=== PATIENT | female | born 1970 | race Caucasian/White ===

== ENCOUNTER 2019-06-10 09:32 | Outpatient (CLI) | payer OTHER, SELFPAY ==
--- NOTE | 2019-06-10 09:59 | CT_ITS ---
WS: [id number] CT CHEST WITH INTRAVENOUS CONTRAST HISTORY: HILAR ADENOPATHY TECHNIQUE: Contiguous 5 mm axial imaging performed on the thorax. Coronal and sagittal reformats are submitted. All CT scans at [facility] use at least one of these dose optimization techniq ues: automated exposure control; mA and/or kV adjustment per patient size (includes targeted exams wh ere dose is matched to clinical indication); or iterative reconstruction. CONTRAST: Omnipaque 300; 95 mL IV. DLP: 857.08 mGycm COMPARISON: Chest radiograph 12/22/2017 Lungs and central airway: Poor inspiratory effort. There is crowding the lung markings and mild hazin ess and groundglass attenuation. These findings would likely improved with better inspiration. There are a few scattered granulomata. No mass or pulmonary nodule. Pleura: Normal. No pleural effusion. Heart and pericardium: Normal size heart. No pericardial effusion. Mediastinum and rolanda: There are several small mediastinal and hilar lymph nodes. Normal size and fatt y rolanda. No enlarged lymph nodes. Vessels: Normal size aortic and pulmonary artery. No coronary artery calcifications. Chest wall and lower neck: 6 mm RIGHT thyroid nodule. Smaller nodule in the inferior pole of the LEFT thyroid. Dense bilateral fibroglandular tissue within each breast. Nodular in appearance but symmetr ic bilaterally. Upper abdomen: Hepatic steatosis. Prior cholecystectomy. Normal adrenal glands. Osseous structures: Mild RIGHT convex curvature thoracic spine. CT/CT chest w con* [id number] IMPRESSION: 1. Study is limited by poor inspiration. Lung markings would probably improve with better inspiration. 2. No significant adenopathy. There are several small mediastinal and hilar ly mph nodes which are not enlarged and could be reactive. 3. Dense nodular fibroglandular breast tissue, may be normal for this patient' s age. If mammogram has not been performed consider screening mammogram evaluat ion. 4. Prior cholecystectomy.
[2019-06-10] MEDS: iohexol 300 mg/mL 100 mL Btl IV (10:30)
== END 2019-06-10 09:33 | disposition home or self-care (01) ==
LOC: RADWPI 09:41
PROVIDERS: Family Provider Family Medicine; PCP Family Medicine; Visit Provider Family Medicine
DX: R59.0 Localized enlarged lymph nodes (principal); Z90.49 Acquired absence of other specified parts of digestive tract
CPT/HCPCS: 71260; Q9967

== ENCOUNTER 2023-06-14 23:22 | Emergency (ER) | payer OTHER, SELFPAY ==
[2023-06-14 23:23] VITALS: BP 171/95; PULSE 68; RESP 18; TEMP 36.3; O2SAT 98; BMI 29.6
[2023-06-14 23:51] LABS: Basophils % 0.5 %; Eosinophils # 0.2 10^3/uL (0.0-0.8); Eosinophils % 2.4 %; Hematocrit 38.8 % (36-47); Lymphocytes # 1.6 10^3/uL (0.8-4.8); Lymphocytes % 24.2 %; Mean Corpuscular HGB Conc 34.3 g/dL (30-55); Mean Corpuscular Hemoglobin 31.4 pg (27-33); Mean Corpuscular Volume 91.5 fl (85-98); Mean Platelet Volume 8.9 fL (7.4-10.4); Monocytes # 0.4 10^3/uL (0.2-0.9); Monocytes % 5.9 %; Neutrophils # 4.43 10^3/uL (1.8-7.7); Neutrophils % 66.7 %; Nucleated Red Blood Cells % 0 %; Platelet Count 295 10^3/cmm (157-399); Red Blood Count 4.24 10^6/uL (3.85-5.65); Red Cell Distribution Width 12.1 % (12.1-15.1); White Blood Count 6.64 10^3/uL (3.29-11.43)
--- NOTE | 2023-06-15 | ECG_ITS ---
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 Measurements Intervals [place] Rate: 79 P: 53 GA: 206 QRS: 49 QRSD: 95 T: 24 QT: 393 QTc: 451 Interpretive Statements SINUS RHYTHM POSSIBLE LEFT ATRIAL ENLARGEMENT [-0.1mV P-WAVE IN V1/V2] MINIMAL ST DEPRESSION [0.025+ mV ST DEPRESSION] Compared to ECG 12/22/2017 23:03:40 ST (T wave) deviation now present Electronically Signed On 06-15-2023 9:46:42 CDT by Reginaldo Samson M.D. [id number]
--- NOTE | 2023-06-15 | XRR_ITS ---
PROCEDURE INFORMATION: Exam: XR Chest Exam date and time: 06/15/2023 12:04 AM Age: 53 years old Clinical indication: Pain; Chest pressure; Additional info: Chest pain TECHNIQUE: Imaging protocol: Radiologic exam of the chest. Views: 1 view. COMPARISON: CT chest w con* [id number] 06/10/2019 10:27 AM FINDINGS: Lungs: Unremarkable. No consolidation. Pleural spaces: Unremarkable. No pleural effusion. No pneumothorax. Heart/Mediastinum: Unremarkable. No cardiomegaly. Bones/joints: Unremarkable. XR/XR chest 1V portable [id number] IMPRESSION: No acute findings.
[2023-06-15 00:01] VITALS: BP 206/106; PULSE 73; RESP 18; O2SAT 100
--- NOTE | 2023-06-15 00:02 | ED_ITS ---
Documented by User: GOGO Barragan 06/15/23 00:56 HPI - General Adult 2 General: Chief complaint: Headache Stated complaint: headache, nausea, htn Time Seen by Provider: 06/14/23 23:24 Source: patient and family Mode of arrival: EMS Limitations: no limitations History of Present Illness: Patient is a nice 53-year-old female presents to ED today with presumably her daughter for evaluation of hypertension and headache. Patient states she has a longstanding history of chronic hypertension resistant to many medications. Patient states her current blood pressure regimen includes metoprolol 200mg in the morning and 100mg at night, olmesartan morning and evening, and hydralizine. She states her blood pressures when they are good will run 130s/70s but states it is not abnormal for systolics to be in the 160s. 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 She wonders about renal artery stenosis but is not sure if this has ever been checked. She states today she began having a headache and chest pain and checked her blood pressure and it was significantly elevated thus prompting family to call EMS. Upon arrival, blood pressure was reportedly around 220s/110s. EMS administered 20 IV labetalol in route. During my assessment she states she no longer has a headache. Some minor chest discomfort that she attributes to anxiety stating she has been under a lot of stress lately. No visual changes. States she has had echo/stress testing through her vacuum cleaner repairer but unknown last time these were completed. Denies history of CAD. Onset (ago): hour(s) Location: head and chest Severity: moderate Pain Consistency: now resolved Associated symptoms: Reports chest pain, headache(s), nausea and palpitations; Deny dyspnea, malaise, rash, syncope or vomiting Treatments prior to arrival: other (IV labetalol given via EMS) Review of Systems 2 Const: Denies: fever(s), chills, body aches, fatigue or malaise Card: Reports: chest pain and palpitations; Denies: irregular heart rhythm, edema, swelling of feet/ankles, lightheadedness, syncope, pre-syncope, dyspnea on exertion, orthopnea, leg pain with exertion or acrocyanosis Resp: Denies: dyspnea, productive cough, non-productive cough, wheezing, pain on inspiration, hemoptysis or chest congestion GI: Reports: nausea; Denies: abdominal pain, vomiting or change in bowel habits Musc: Denies: neck pain, back pain, extremity pain or joint pain Skin/Breast: Denies: rash Neuro: Reports: headache(s); Denies: numbness in extremities, weakness in extremities or sensory changes Psych: Reports: anxiety Physical Exam 2 Const: COMMON NORMALS: no acute distress, average body habitus, patient oriented x3, no limitations, healthy appearing, alert and well nourished Resp: COMMON NORMALS: normal respiratory effort Cardio: COMMON NORMALS: regular rate and regular rhythm RATE: regular rate RHYTHM: regular rhythm Extremity: COMMON NORMALS: no calf tenderness and no pedal edema Neuro: CHETNA COMA SCALE: document GCS findings [place] coma scale eye opening: Spontaneous [place] coma scale verbal response: Orientated [place] coma scale motor response: Obey commands [place] coma scale total score: 15 COMMON NORMALS: patient oriented x3 SENSORIUM/ORIENTATION: Yes alert Course 2 Vital Signs: Vital signs: Vital Signs Temperature 97.4 F L 06/14/23 23:23 Pulse Rate 79 06/15/23 02:05 Respiratory Rate 18 06/15/23 02:05 Blood Pressure 151/87 06/15/23 02:05 Pulse Oximetry 98 06/15/23 02:05 MDM - General Adult Lab Data 06/14/23 23:47 06/14/23 23:47 Radiology Impressions Chest X-Ray 06/15/23 00:00 IMPRESSION: No acute findings. Laboratory Results WBC 6.64 10^3/uL (3.29-11.43) 06/14/23 23:47 RBC 4.24 10^6/uL (3.85-5.65) 06/14/23 23:47 Hgb 13.30 g/dL (11.27-16.99) 06/14/23 23:47 Hct 38.8 % (36-47) 06/14/23 23:47 MCV 91.5 fl (85-98) 06/14/23 23:47 MCH 31.4 pg (27-33) 06/14/23 23:47 MCHC 34.3 g/dL (30-55) 06/14/23 23:47 RDW 12.1 % (12.1-15.1) 06/14/23 23:47 Plt Count 295 10^3/cmm (157-399) 06/14/23 23:47 MPV 8.9 fL (7.4-10.4) 06/14/23 23:47 Neut % (Auto) 66.7 % 06/14/23 23:47 Lymph % (Auto) 24.2 % 06/14/23 23:47 Hinds % (Auto) 5.9 % 06/14/23 23:47 Eos % (Auto) 2.4 % 06/14/23 23:47 Baso % (Auto) 0.5 % 06/14/23 23:47 Neut # (Auto) 4.43 10^3/uL (1.8-7.7) 06/14/23 23:47 Lymph # (Auto) 1.6 10^3/uL (0.8-4.8) 06/14/23 23:47 Hinds # (Auto) 0.4 10^3/uL (0.2-0.9) 06/14/23 23:47 Eos # (Auto) 0.2 10^3/uL (0.0-0.8) 06/14/23 23:47 Baso # (Auto) 0.0 10^3/uL (0.0-0.1) 06/14/23 23:47 Nucleated RBC % (auto) 0 % 06/14/23 23:47 Nucleated RBCs # 0.0 /100WBC 06/14/23 23:47 Sodium 133 mmol/L (136-145) L 06/14/23 23:47 Potassium 3.6 mmol/L (3.5-5.1) 06/14/23 23:47 Chloride 95 mmol/L (98-107) L 06/14/23 23:47 Carbon Dioxide 27 mmol/L (22-29) 06/14/23 23:47 Anion Gap 14.6 (5-19) 06/14/23 23:47 BUN 14 mg/dL (6-20) 06/14/23 23:47 Creatinine 0.5 mg/dL (0.5-0.9) 06/14/23 23:47 GFR Calculation 128.1 mL/min (90-130) 06/14/23 23:47 Glucose 159 mg/dL (65-115) H 06/14/23 23:47 Calculated Osmolality 280 mOsm/kg (285-295) L 06/14/23 23:47 Calcium 9.1 mg/dL (8.5-10.5) 06/14/23 23:47 Total Bilirubin 0.2 mg/dL (0.15-1.2) 06/14/23 23:47 AST 26 U/L (0-32) 06/14/23 23:47 ALT 23 U/L (0-33) 06/14/23 23:47 Alkaline Phosphatase 65 U/L (35-105) 06/14/23 23:47 Troponin T Baseline 7 ng/L (0-10) 06/14/23 23:47 Troponin T 120 Minute 6.00 ng/L (0-10) 06/15/23 01:31 Delta Troponin T -1.00 ABS# (0-10) L 06/15/23 01:31 Total Protein 7.6 g/dL (6.6-8.7) 06/14/23 23:47 Albumin 4.5 g/dL (3.5-5.2) 06/14/23 23:47 Globulin 3.1 g/dL (1.3-4.6) 06/14/23 23:47 Urine Color Yellow (Yellow) 06/15/23 00:32 Urine Appearance Clear (CLEAR) 06/15/23 00:32 Urine pH 7 (5-7) 06/15/23 00:32 Ur Specific [place] 1.010 (1.005-1.030) 06/15/23 00:32 Urine Protein Neg (Negative) 06/15/23 00:32 Urine Glucose (UA) Norm (Normal) 06/15/23 00:32 Urine Ketones Negative (Negative) 06/15/23 00:32 Urine Blood Neg (Negative) 06/15/23 00:32 Urine Nitrate Negative (Negative) 06/15/23 00:32 Urine Bilirubin Neg (Negative) 06/15/23 00:32 Urine Urobilinogen Neg mg/dL (Negative) 06/15/23 00:32 Ur Leukocyte Esterase Negative (Negative) 06/15/23 00:32 Discharge Plan Discharge Patient Disposition: Home Clinical Impression: Hypertensive emergency, Headache Condition: Stable Prescriptions: New clonidine HCl 0.1 mg tablet 0.1 mg PO QID Qty: 20 0RF Rx Instructions: Take 1 pill if BP above 180. May repeat x2 1 hour apart if BP above 180 Discharge Orders: Discharge ED (Routine); Ordered 06/15/23 Ordered By: Philip Negrete Referrals: Abraham Jiang MD [Primary Care Provider] - Discharge Diet: Low Salt Discharge Activity: Resume usual activity Patient Instructions: Opioid Safety, Pain Management Activity Restrictions/Additional Instructions: Activity Restrictions/Additional Instructions: Thank you for choosing [facility] for your healthcare needs today. Please realize that you were seen in the Emergency Department and that we are providing you with an emergency medical screening exam and this may not be a complete and all inclusive of all the testing and or medical work-up that you may need to determine your ailment or severity of your illness. It is very important that you follow-up as instructed with your Primary care provider or Specialist for additional evaluation and to discuss your medical treatment plan. You may return to the Emergency Department should you have concerns or if your condition changes or worsens in any way. Coding Level of Care Code ED Telephone Engineer for Chg Fwd Documented by User: Philip Negrete MD 07/06/23 03:17 HPI - General Adult 2 General: Chief complaint: Headache Stated complaint: headache, nausea, htn Time Seen by Provider: 06/14/23 23:24 Physical Exam 2 Neuro: CHETNA COMA SCALE: document GCS findings [place] coma scale total score: 15 Course 2 Vital Signs: Vital signs: Vital Signs Temperature 97.4 F L 06/14/23 23:23 Pulse Rate 79 06/15/23 02:05 Respiratory Rate 18 06/15/23 02:05 Blood Pressure 151/87 06/15/23 02:05 Pulse Oximetry 98 06/15/23 02:05 MDM - General Adult Medical Decision Making I discussed the patient's history of present illness, physical exam findings, pertinent labs, pertinent radiographic exams and plan of care with the midlevel provider. I did personally have a [id number] evaluation and discussion with the patient regarding the plan of care and the need for further evaluation. Differential Diagnosis Malignant hypertension, posterior reversible encephalopathic syndrome, hypertensive emergency, medication noncompliance, renal artery stenosis, Medical Records I reviewed the patient's medical records. Lab Data I reviewed the patient's lab results. 06/14/23 23:47 06/14/23 23:47 Radiology Impressions Chest X-Ray 06/15/23 00:00 IMPRESSION: No acute findings. Laboratory Results WBC 6.64 10^3/uL (3.29-11.43) 06/14/23 23:47 RBC 4.24 10^6/uL (3.85-5.65) 06/14/23 23:47 Hgb 13.30 g/dL (11.27-16.99) 06/14/23 23:47 Hct 38.8 % (36-47) 06/14/23 23:47 MCV 91.5 fl (85-98) 06/14/23 23:47 MCH 31.4 pg (27-33) 06/14/23 23:47 MCHC 34.3 g/dL (30-55) 06/14/23 23:47 RDW 12.1 % (12.1-15.1) 06/14/23 23:47 Plt Count 295 10^3/cmm (157-399) 06/14/23 23:47 MPV 8.9 fL (7.4-10.4) 06/14/23 23:47 Neut % (Auto) 66.7 % 06/14/23 23:47 Lymph % (Auto) 24.2 % 06/14/23 23:47 Hinds % (Auto) 5.9 % 06/14/23 23:47 Eos % (Auto) 2.4 % 06/14/23 23:47 Baso % (Auto) 0.5 % 06/14/23 23:47 Neut # (Auto) 4.43 10^3/uL (1.8-7.7) 06/14/23 23:47 Lymph # (Auto) 1.6 10^3/uL (0.8-4.8) 06/14/23 23:47 Hinds # (Auto) 0.4 10^3/uL (0.2-0.9) 06/14/23 23:47 Eos # (Auto) 0.2 10^3/uL (0.0-0.8) 06/14/23 23:47 Baso # (Auto) 0.0 10^3/uL (0.0-0.1) 06/14/23 23:47 Nucleated RBC % (auto) 0 % 06/14/23 23:47 Nucleated RBCs # 0.0 /100WBC 06/14/23 23:47 Sodium 133 mmol/L (136-145) L 06/14/23 23:47 Potassium 3.6 mmol/L (3.5-5.1) 06/14/23 23:47 Chloride 95 mmol/L (98-107) L 06/14/23 23:47 Carbon Dioxide 27 mmol/L (22-29) 06/14/23 23:47 Anion Gap 14.6 (5-19) 06/14/23 23:47 BUN 14 mg/dL (6-20) 06/14/23 23:47 Creatinine 0.5 mg/dL (0.5-0.9) 06/14/23 23:47 GFR Calculation 128.1 mL/min (90-130) 06/14/23 23:47 Glucose 159 mg/dL (65-115) H 06/14/23 23:47 Calculated Osmolality 280 mOsm/kg (285-295) L 06/14/23 23:47 Calcium 9.1 mg/dL (8.5-10.5) 06/14/23 23:47 Total Bilirubin 0.2 mg/dL (0.15-1.2) 06/14/23 23:47 AST 26 U/L (0-32) 06/14/23 23:47 ALT 23 U/L (0-33) 06/14/23 23:47 Alkaline Phosphatase 65 U/L (35-105) 06/14/23 23:47 Troponin T Baseline 7 ng/L (0-10) 06/14/23 23:47 Troponin T 120 Minute 6.00 ng/L (0-10) 06/15/23 01:31 Delta Troponin T -1.00 ABS# (0-10) L 06/15/23 01:31 Total Protein 7.6 g/dL (6.6-8.7) 06/14/23 23:47 Albumin 4.5 g/dL (3.5-5.2) 06/14/23 23:47 Globulin 3.1 g/dL (1.3-4.6) 06/14/23 23:47 Urine Color Yellow (Yellow) 06/15/23 00:32 Urine Appearance Clear (CLEAR) 06/15/23 00:32 Urine pH 7 (5-7) 06/15/23 00:32 Ur Specific [place] 1.010 (1.005-1.030) 06/15/23 00:32 Urine Protein Neg (Negative) 06/15/23 00:32 Urine Glucose (UA) Norm (Normal) 06/15/23 00:32 Urine Ketones Negative (Negative) 06/15/23 00:32 Urine Blood Neg (Negative) 06/15/23 00:32 Urine Nitrate Negative (Negative) 06/15/23 00:32 Urine Bilirubin Neg (Negative) 06/15/23 00:32 Urine Urobilinogen Neg mg/dL (Negative) 06/15/23 00:32 Ur Leukocyte Esterase Negative (Negative) 06/15/23 00:32 All radiology interpretation(s) finalized by discharge Discharge Plan Discharge Patient Disposition: Home Clinical Impression: Hypertensive emergency, Headache Condition: Stable Prescriptions: New clonidine HCl 0.1 mg tablet 0.1 mg PO QID Qty: 20 0RF Rx Instructions: Take 1 pill if BP above 180. May repeat x2 1 hour apart if BP above 180 Discharge Orders: Discharge ED (Routine); Ordered 06/15/23 Ordered By: Philip Negrete Referrals: Abraham Jiang MD [Primary Care Provider] - Discharge Diet: Low Salt Discharge Activity: Resume usual activity Patient Instructions: Opioid Safety, Pain Management Activity Restrictions/Additional Instructions: Activity Restrictions/Additional Instructions: Thank you for choosing [facility] for your healthcare needs today. Please realize that you were seen in the Emergency Department and that we are providing you with an emergency medical screening exam and this may not be a complete and all inclusive of all the testing and or medical work-up that you may need to determine your ailment or severity of your illness. It is very important that you follow-up as instructed with your Primary care provider or Specialist for additional evaluation and to discuss your medical treatment plan. You may return to the Emergency Department should you have concerns or if your condition changes or worsens in any way. Coding Level of Care Code ED Telephone Engineer for Gino Heredia
[2023-06-15 00:05] LABS: Alanine Aminotransferase 23 U/L (0-33); Albumin Level 4.5 g/dL (3.5-5.2); Alkaline Phosphatase 65 U/L (35-105); Aspartate Amino Transferase 26 U/L (0-32); Blood Urea Nitrogen 14 mg/dL (6-20); Calcium 9.1 mg/dL (8.5-10.5); Carbon Dioxide 27 mmol/L (22-29); Chloride 95 mmol/L (98-107); Creatinine Clr Calc Pharmacy 114.7282; Globulin 3.1 g/dL (1.3-4.6); Glomerular Filtration Rate 128.1 mL/min (90-130); Glucose 159 mg/dL (65-115); Osmolality Calculated 280 mOsm/kg (285-295); Sodium 133 mmol/L (136-145); Total Bilirubin 0.2 mg/dL (0.15-1.2); Total Protein 7.6 g/dL (6.6-8.7)
[2023-06-15 00:06] LABS: Anion Gap 14.6 (5-19); Potassium 3.6 mmol/L (3.5-5.1)
[2023-06-15] MEDS: hyDRALAzine 20 mg/mL INJ 1 mL 5 MG IVP (00:08)
[2023-06-15] MEDS: LORazepam 2 mg/mL INJ 10 mL MDV 1 MG IVP (00:08)
[2023-06-15 00:19] LABS: Troponin(5th) Baseline 7 ng/L (0-10)
[2023-06-15 00:37] LABS: Add Urine Microscopic? NO; Charge for UA Resulting for Rev
[2023-06-15 00:38] VITALS: BP 178/100; PULSE 79; RESP 18; O2SAT 100
[2023-06-15 00:42] LABS: Bilirubin Urine Neg (Negative); Blood Urine Neg (Negative); Glucose Urine UA Norm (Normal); Ketones Urine Negative (Negative); Leukocyte Esterase Urine Negative (Negative); Nitrate Urine Negative (Negative); Protein Urine Neg (Negative); Urine Appearance Clear (CLEAR); Urine Color Yellow (Yellow); Urobilinogen Urine Neg (Negative); pH Urine 7 (5-7)
[2023-06-15] MEDS: labetalol 5 mg/mL SDV 20mL 10 MG IVP (00:58)
[2023-06-15 01:03] VITALS: BP 163/92; PULSE 82; RESP 16; O2SAT 99
[2023-06-15 01:30] VITALS: BP 136/78; PULSE 81; RESP 20; O2SAT 97
--- NOTE | 2023-06-15 02:00 | ECG_ITS ---
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 Measurements Intervals [place] Rate: 81 P: 54 CO: 200 QRS: 45 QRSD: 90 T: 16 QT: 394 QTc: 459 Interpretive Statements SINUS RHYTHM POSSIBLE LEFT ATRIAL ENLARGEMENT [-0.1mV P-WAVE IN V1/V2] SEPTAL MYOCARDIAL INFARCTION , OF INDETERMINATE AGE [40+ ms Q WAVE IN V1/V2] Compared to ECG 06/15/2023 00:19:55 Myocardial infarct finding now present ST (T wave) deviation no longer present Electronically Signed On 06-15-2023 9:47:17 CDT by Reginaldo Samson M.D. [email or web address] campus of delta regional medical centerProposifyour lady of mercy [facility] [email or web address] Munch/store/OM/[id number]
[2023-06-15 02:05] VITALS: BP 151/87; PULSE 79; RESP 18; O2SAT 98
== END 2023-06-15 02:07 | disposition home or self-care (01) ==
PROVIDERS: Emergency Provider Physician Assistant; PCP Family Medicine
DX: R51.9 Headache, unspecified (principal); I16.1 Hypertensive emergency; I10 Essential (primary) hypertension
CPT/HCPCS: 71045; 80053; 81003; 84484; 85025; 93005; 96374; 96375; 99285; J0360; J2060; J3490

== ENCOUNTER 2023-12-28 14:15 | Outpatient (CLI) | payer OTHER, SELFPAY ==
--- NOTE | 2023-12-28 14:18 | CTR_ITS ---
PROCEDURE INFORMATION: Exam: CT Cervical Spine Without Contrast Exam date and time: 12/28/2023 2:28 PM Age: 53 years old Clinical indication: Prior surgery; Surgery date: 6+ months; Surgery type: Cervical fusion; Patient HX: Neck pain and tailbone/lower back pain radiating down let leg, and hip pain x 1 year; Additional info: Degeneration of cervical intervertebral TECHNIQUE: Imaging protocol: Computed tomography of the cervical spine without contrast. Radiation optimization: All CT scans at this facility use at least one of these dose optimization techniques: automated exposure control; mA and/or kV adjustment per patient size (includes targeted exams where dose is matched to clinical indication); or iterative reconstruction. COMPARISON: US ROR carotid duplex BI 08/19/2021 9:58 AM RADIATION DOSE METRICS: Total DLP (mGy-cm): 129.87 FINDINGS: Bones: Negative for cervical spine fracture. Normal alignment. C5-C6 ACDF without complication. Moderate to severe disc disease at C6-C7. [id number]-[id number] severity multilevel facet joint arthropathy worse on the right than the left. No levels of significant spinal canal stenosis identified. Lungs: Lung apices are normal. Soft tissues: Unremarkable. CT/CT cervical spin wo con* [id number] IMPRESSION: Negative for acute cervical spine pathology.
--- NOTE | 2023-12-28 14:18 | CTR_ITS ---
PROCEDURE INFORMATION: Exam: CT Lumbar Spine Without Contrast Exam date and time: 12/28/2023 2:32 PM Age: 53 years old Clinical indication: Low back pain; Patient HX: Neck pain and tailbone/lower back pain radiating down let leg, and hip pain x 1 year; Additional info: Lumbar spondylolisthesis TECHNIQUE: Imaging protocol: Computed tomography of the lumbar spine without contrast. Radiation optimization: All CT scans at this facility use at least one of these dose optimization techniques: automated exposure control; mA and/or kV adjustment per patient size (includes targeted exams where dose is matched to clinical indication); or iterative reconstruction. COMPARISON: US ROR renal doppler 06/21/2023 11:51 AM RADIATION DOSE METRICS: Total DLP (mGy-cm): 324.18 FINDINGS: Bones/joints: Negative for fracture. Grade 1 L5-S1 spondylolisthesis. Bilateral L5 pars defects. No levels of significant spinal canal stenosis. Moderate severity neuroforaminal stenosis bilaterally at L5-S1. Mild narrowing of the L5-S1 disc. Soft tissues: Unremarkable. CT/CT lumbar spine wo con* [id number] IMPRESSION: 1. Negative for acute lumbar spine pathology. 2. Spondylolysis with spondylolisthesis of the lumbosacral junction.
== END 2023-12-28 14:16 | disposition home or self-care (01) ==
LOC: RAD 14:16
PROVIDERS: PCP Family Medicine; Visit Provider Family Medicine
DX: M43.16 Spondylolisthesis, lumbar region (principal); M99.63 Osseous and subluxation stenosis of intervertebral foramina of lumbar region; M50.323 Other cervical disc degeneration at C6-C7 level; M47.892 Other spondylosis, cervical region
CPT/HCPCS: 72125; 72131

== ENCOUNTER 2024-01-30 10:41 | Outpatient (CLI) | payer OTHER, SELFPAY ==
--- NOTE | 2024-01-30 10:40 | MM_ITS ---
WS: [id number] BILATERAL 3D TOMOSYNTHESIS DIGITAL SCREENING MAMMOGRAPHY WITH CAD CLINICAL INFORMATION: SCREENING HISTORY: Screening mammogram. No current complaints. History of breast reduction COMPARISON: 2020 TECHNIQUE: Bilateral CC and MLO views. FINDINGS: Prior bilateral breast reduction. The breasts are composed of nodular heterogeneous fibroglandular density tissue, which can limit the detection of small underlying mass lesions. No suspicious mass, asymmetry, calcifications, or archite ctural distortion. No evidence of malignancy. MM/MM [facility] tomosynthesis [id number] IMPRESSION: DENSITY: The breasts are heterogeneously dense, which may obscure small masses. BI-RADS: 1 - Negative FOLLOW UP: 1 Year Follow-up Recommend return to annual screening mammography.
== END 2024-01-30 10:42 | disposition home or self-care (01) ==
LOC: MOBLMAM 10:42
PROVIDERS: PCP Family Medicine; Visit Provider Family Medicine
DX: Z12.31 Encounter for screening mammogram for malignant neoplasm of breast (principal); R92.333 Mammographic heterogeneous density, bilateral breasts
CPT/HCPCS: 77063; 77067